=== PATIENT | male | born 1960 | race Caucasian/White ===

== ENCOUNTER → 2017-02-13 | Day surgery (SDC) | payer OTHER ==
[2008-01-01 17:22] VITALS: BP 138/81
[~2017-02-13] MED LIST: ATIVAN 0.5MG T0.5 MG PO; ATIVAN0.5 MG PO; KETOROLAC TROME10 M1 PO; PERCOCET 5-3251 EACH PO; ROXICET 325 MG PO
--- NOTE | 2017-02-13 14:49 | Operative Report ---
Operative/Inv Procedure Report Surgery Date: 02/13/17 Name of Procedure: left ureter eswl/fluoroscopy Pre-Operative Diagnosis: bilat. stones: left hydro due to ureter stone Post-Operative Diagnosis: same Estimated Blood Loss: none, n/a Surgeon/Medical Record Technician: TENISHA TORRES MD Anesthesia: moderate sedation Drains: none Complications: none Operative/Procedure Note Note: The patient was taken to the operating room and placed on the ESWL table in supine position. Time out was performed, with the patient awake, to confirm identity, procedure, laterality, and other pertinent vicky-operative information. After adequate anesthesia, the patient was positioned so that the left flank was placed over the ESWL table cut-out, and overlying the dome of the shockwave generator. C-arm fluroscopy, as well as renal US was used to locate the stone, and evaluate the left kidney. The stone was visible on fluroloscopy at the distal-left ureter. Renal US confirmed mild hydronephrosis, with no additional stone seen in the left kidney. The left ureter stone was not easily distinguishable from surrounding phleboliths. 30 mL of IV contrast was injected intravenously. After waiting 10 minutes the contrast was noted to drain into the left ureter highlighting the filling defect consistent with stone at the distal ureter. The stone was approximately 5 mm in size, and faintly visible with fluoroscopy. Using fluoroscopy, the position of the ureter stone was optimized for ESWL, using AP, and oblique views of the stone. Subsequently, E.S.W.L. was initiated at low power levels x 200 shocks. After noting the patient's tolerance to the shockwaves, the shock wave power level was quickly maximized. At the end of the procedure, the composition of the stone had changed significantly indicating the pulverization of the ureter stone. A total of 3000 shockwaves were delivered to the stone in order to achieve adequate lithotrypsy. The patient tolerated the procedures well, was awakened, and taken to recovery in satisfactory condition via stretcher. The pt will eventually be dischared to home with pain meds, diet orders, and intructions to catch fragments with straining the urine. The patient is to have follow-up renal ultrasound and KUB (after the left renal stone is treated as well). Discharge Disposition: Same Day Admissions CC: TENISHA TORRES MD
== END ==
LOC: STS 07:00
DX: N13.2 Hydronephrosis with renal and ureteral calculous obstruction (principal)
CPT/HCPCS: J2250